=== PATIENT | male | born 1965 | race Hispanic/Latino ===

== ENCOUNTER 2017-09-09 13:47 | Emergency (ER) | payer SELFPAY ==
--- NOTE | 2017-09-09 15:50 | Emergency Department Report ---
Blank Doc - Documentation Documentation: 52 y.o c.m is here with back pain, mild 3/10, bright red blood in urine that started this morning. no fever, no flank pain, no prior history of such symptoms. no chest pain, sob.
[2017-09-09 16:03] LABS: Bilirubin,Urine NEG (Negative); Blood,Urine LG (Negative); Color,Urine Red (Yellow); Mucus,Urine 1+ /HPF
[2017-09-09 16:08] LABS: RBC,Urine > 182.0 /HPF (0.0-6.0)
[2017-09-09 16:09] LABS: Basophils # (Auto) 0.1 K/mm3 (0.0-0.1); Eosinophils % (Auto) 0.5 % (0.0-4.3); Hematocrit 39.6 % (35.5-45.6); Hemoglobin 13.4 gm/dl (11.8-15.2); Lymphocytes % (Auto) 12.9 % (13.4-35.0); Mean Corpuscular HGB Conc 34 % (32-34); Mean Corpuscular Hemoglobin 31 pg (28-32); Mean Corpuscular Volume 93 fl (84-94); Monocytes # (Auto) 0.7 K/mm3 (0.0-0.8); Monocytes % (Auto) 8.8 % (0.0-7.3); Platelet Count 243 K/mm3 (140-440); Red Blood Count 4.27 M/mm3 (3.65-5.03); Red Cell Distribution Width 13.7 % (13.2-15.2)
[2017-09-09 16:24] LABS: Alanine Aminotransferase 18 units/L (7-56); BUN/Creatinine Ratio 26; Blood Urea Nitrogen 21 mg/dL (9-20); Calcium 9.3 mg/dL (8.4-10.2); Hemolysis Index 8
--- NOTE | 2017-09-09 16:38 | Emergency Department Report ---
ED Male HPI - General Chief complaint: Urogenital-Male Stated complaint: BLOOD IN URINE Time Seen by Provider: 09/09/17 16:55 Source: patient, family Mode of arrival: Stretcher Limitations: No Limitations - History of Present Illness Initial comments: 52 y.o c.m is here with back pain, mild 3/10, bright red blood in urine that started this morning. no fever, no flank pain, no prior history of such symptoms. no chest pain, sob. Pain is located to the lower pack and 5 out of 10. Intermittent. Denies any history of kidney stones. Patient morbid obesity and multiple allergies. He has a history of COPD, history of tracheostomy, sleep apnea, right DVT and PE IVC filter, hernia repair. Patient is lungs are also since 2007 and he's been followed by his primary care doctor Nicholas. He said he has multiple episode of clots and he is to be on medication for life. Denies any active bleeding in anywhere that in his urine. Denies any swelling of legs. Denies any fever or chills. Denies any coughing. MD Complaint: other (blood in urine and back pain) Onset/Timin -: days(s) Radiation: none Severity: moderate Severity scale (0 -10): 5 Quality: aching Consistency: intermittent Improves with: none Worsens with: none blood in urine, other (pain is located to the lower back.). denies: discharge, swelling, mass, rash, urinary retention, dysuria, fever, nausea/vomiting, incontinence - Related Data Sexually active: Yes Previous Rx's Medication Instructions Recorded Last Taken Type Levofloxacin [Levaquin] 750 mg PO QDAY 10 Days #10 tablet 09/09/17 Unknown Rx Ondansetron [Zofran ODT TAB] 8 mg PO Q8HR PRN #12 tab.rapdis 09/09/17 Unknown Rx Allergies Allergy/AdvReac Type Severity Reaction Status Date / Time acetaminophen [From Vicodin] Allergy Unknown Verified 09/09/17 14:38 hydrocodone [From Vicodin] Allergy Unknown Verified 09/09/17 14:38 ibuprofen [From Motrin] Allergy Unknown Verified 09/09/17 14:38 meperidine [From Demerol] Allergy Unknown Verified 09/09/17 14:38 morphine Allergy Unknown Verified 09/09/17 14:38 oxycodone [From Percocet] Allergy Unknown Verified 09/09/17 14:38 promethazine [From Phenergan] Allergy Unknown Verified 09/09/17 14:38 propoxyphene Allergy Unknown Verified 09/09/17 14:38 [From Darvocet-N 100] ED Review of Systems ROS: Stated complaint: BLOOD IN URINE Other details as noted in HPI Comment: All other systems reviewed and negative Constitutional: no symptoms reported Respiratory: no symptoms reported Cardiovascular: denies: chest pain, palpitations, dyspnea on exertion, orthopnea , edema, syncope, paroxysmal nocturnal dyspnea Gastrointestinal: denies: abdominal pain, nausea, vomiting, diarrhea, constipation, hematemesis, melena, hematochezia Genitourinary: hematuria. denies: urgency, dysuria, frequency, discharge, testicular pain, testicular mass Musculoskeletal: back pain. denies: joint swelling, arthralgia, myalgia Skin: denies: rash Neurological: denies: headache Hematological/Lymphatic: other (patient is on blood thinner) ED Past Medical Hx - Past Medical History Hx Deep Vein Thrombosis: Yes (patient on Xarelto since 2007) Hx Pulmonary Embolism: Yes Hx COPD: Yes Additional medical history: morbid obesity,sleep apnea, right DVT,PE - Surgical History Past Surgical History?: Yes Additional Surgical History: trach,umbilical hernia repair,IVC filter - Family History Family history: hypertension - Social History Smoking Status: Never Smoker Substance Use Type: None - Medications Home Medications: Home Medications Medication Instructions Recorded Confirmed Last Taken Type Levofloxacin [Levaquin] 750 mg PO QDAY 10 Days #10 tablet 09/09/17 Unknown Rx Ondansetron [Zofran ODT TAB] 8 mg PO Q8HR PRN #12 tab.rapdis 09/09/17 Unknown Rx ED Physical Exam - General Limitations: No Limitations General appearance: alert, in no apparent distress, obese (morbid Obesity) - Head Head exam: Present: atraumatic, normocephalic, normal inspection - Eye Eye exam: Present: normal appearance, PERRL, EOMI. Absent: scleral icterus, conjunctival injection, periorbital swelling, periorbital tenderness Pupils: Present: normal accommodation - ENT ENT exam: Present: normal exam, mucous membranes moist, TM's normal bilaterally , normal external ear exam - Neck Neck exam: Present: normal inspection, full ROM, other (O C-spine tenderness). Absent: tenderness, meningismus, lymphadenopathy, thyromegaly - Respiratory Respiratory exam: Present: normal lung sounds bilaterally. Absent: respiratory distress, wheezes, rales, rhonchi, stridor, chest wall tenderness, accessory muscle use, decreased breath sounds, prolonged expiratory - Cardiovascular Cardiovascular Exam: Present: regular rate, normal rhythm, normal heart sounds - GI/Abdominal GI/Abdominal exam: Present: soft, normal bowel sounds. Absent: distended, tenderness, guarding, rebound, rigid, mass, bruit, pulsatile mass, hernia - Extremities Exam Extremities exam: Present: normal inspection, full ROM, normal capillary refill , other (no clubbing, cyanosis or edema. Positive pulses all extremities and no neurovascular compromise). Absent: tenderness, pedal edema, joint swelling, calf tenderness - Back Exam Back exam: Present: normal inspection, other (ambulates without any difficulties ). Absent: tenderness, CVA tenderness (R), CVA tenderness (L), muscle spasm, paraspinal tenderness, rash noted - Neurological Exam Neurological exam: Present: alert, oriented X3, normal gait - Psychiatric Psychiatric exam: Present: normal affect, normal mood - Skin Skin exam: Present: warm, dry, intact, normal color. Absent: rash ED Course Vital Signs 09/09/17 14:32 Temperature 97.9 F Pulse Rate 80 Respiratory 20 Rate Blood Pressure 163/75 O2 Sat by Pulse 94 Oximetry - Reevaluation(s) Reevaluation #1: 09/09/17 18:38 Patient reports blood in urine and he was given normal saline 1 L, Toradol 30 mg IV and Zofran 4 mg IV for back pain. He had one episode of blood in his urine. Reevaluation #2: 09/09/17 18:[address] She [address] have [address] scan of the abdomen and pelvis without contrast because of his morbid obesity. CT scan could not withstand his weight. ED Medical Decision Making - Lab Data Result diagrams: 09/09/17 15:55 09/09/17 15:55 Lab Results 09/09/17 09/09/17 09/09/17 Range/Units 15:17 15:55 15:55 WBC 7.9 (4.5-11.0) K/mm3 RBC 4.27 (3.65-5.03) M/mm3 Hgb 13.4 (11.8-15.2) gm/dl Hct 39.6 (35.5-45.6) % MCV 93 (84-94) fl MCH 31 (28-32) pg MCHC 34 (32-34) % RDW 13.7 (13.2-15.2) % Plt Count 243 (140-440) K/mm3 Lymph % (Auto) 12.9 L (13.4-35.0) % Dolores % (Auto) 8.8 H (0.0-7.3) % Eos % (Auto) 0.5 (0.0-4.3) % Baso % (Auto) 1.0 (0.0-1.8) % Lymph # 1.0 L (1.2-5.4) K/mm3 Dolores # 0.7 (0.0-0.8) K/mm3 Eos # 0.0 (0.0-0.4) K/mm3 Baso # 0.1 (0.0-0.1) K/mm3 Seg Neutrophils % 76.8 H (40.0-70.0) % Seg Neutrophils # 6.0 (1.8-7.7) K/mm3 Sodium 138 (137-145) mmol/L Potassium 4.3 (3.6-5.0) mmol/L Chloride 101.0 (98-107) mmol/L Carbon Dioxide 23 (22-30) mmol/L Anion Gap 18 mmol/L BUN 21 H (9-20) mg/dL Creatinine 0.8 (0.8-1.5) mg/dL Estimated GFR > 60 ml/min BUN/Creatinine Ratio 26 % Glucose 93 (75-100) mg/dL Calcium 9.3 (8.4-10.2) mg/dL Total Bilirubin 0.40 (0.1-1.2) mg/dL AST 17 (5-40) units/L ALT 18 (7-56) units/L Alkaline Phosphatase 72 (35-129) units/L Total Creatine Kinase (55-170) units/L Total Protein 7.2 (6.3-8.2) g/dL Albumin 4.0 (3.9-5) g/dL Albumin/Globulin Ratio 1.3 % Urine Color Red (Yellow) Urine Turbidity Clear (Clear) Urine pH 5.0 (5.0-7.0) Ur Specific Lincoln 1.025 (1.003-1.030) Urine Protein 100 mg/dl (Negative) mg/dL Urine Glucose (UA) Neg (Negative) mg/dL Urine Ketones Tr (Negative) mg/dL Urine Blood Lg (Negative) Urine Nitrite Neg (Negative) Urine Bilirubin Neg (Negative) Urine Urobilinogen 2.0 (<2.0) mg/dL Ur Leukocyte Esterase Tr (Negative) Urine WBC (Auto) 159.0 H (0.0-6.0) /HPF Urine RBC (Auto) > 182.0 (0.0-6.0) /HPF U Epithel Cells (Auto) 3.0 (0-13.0) /HPF Urine Mucus 1+ /HPF 09/09/17 Range/Units 15:55 WBC (4.5-11.0) K/mm3 RBC (3.65-5.03) M/mm3 Hgb (11.8-15.2) gm/dl Hct (35.5-45.6) % MCV (84-94) fl MCH (28-32) pg MCHC (32-34) % RDW (13.2-15.2) % Plt Count (140-440) K/mm3 Lymph % (Auto) (13.4-35.0) % Dolores % (Auto) (0.0-7.3) % Eos % (Auto) (0.0-4.3) % Baso % (Auto) (0.0-1.8) % Lymph # (1.2-5.4) K/mm3 Dolores # (0.0-0.8) K/mm3 Eos # (0.0-0.4) K/mm3 Baso # (0.0-0.1) K/mm3 Seg Neutrophils % (40.0-70.0) % Seg Neutrophils # (1.8-7.7) K/mm3 Sodium (137-145) mmol/L Potassium (3.6-5.0) mmol/L Chloride (98-107) mmol/L Carbon Dioxide (22-30) mmol/L Anion Gap mmol/L BUN (9-20) mg/dL Creatinine (0.8-1.5) mg/dL Estimated GFR ml/min BUN/Creatinine Ratio % Glucose (75-100) mg/dL Calcium (8.4-10.2) mg/dL Total Bilirubin (0.1-1.2) mg/dL AST (5-40) units/L ALT (7-56) units/L Alkaline Phosphatase (35-129) units/L Total Creatine Kinase 71 (55-170) units/L Total Protein (6.3-8.2) g/dL Albumin (3.9-5) g/dL Albumin/Globulin Ratio % Urine Color (Yellow) Urine Turbidity (Clear) Urine pH (5.0-7.0) Ur Specific Lincoln (1.003-1.030) Urine Protein (Negative) mg/dL Urine Glucose (UA) (Negative) mg/dL Urine Ketones (Negative) mg/dL Urine Blood (Negative) Urine Nitrite (Negative) Urine Bilirubin (Negative) Urine Urobilinogen (<2.0) mg/dL Ur Leukocyte Esterase (Negative) Urine WBC (Auto) (0.0-6.0) /HPF Urine RBC (Auto) (0.0-6.0) /HPF U Epithel Cells (Auto) (0-13.0) /HPF Urine Mucus /HPF Urine culture sent and pending - EKG Data -: EKG Interpreted by Me (attending physician in ER.) EKG shows normal: sinus rhythm (65 bpm) Rate: normal - EKG Data Interpretation: no acute changes - Radiology Data Radiology results: pending Pt unable to get CT scan of the abdomen and pelvis due to his massive body habitus - Medical Decision Making ED course: This is a 52-year-old male here complaining of back pain to his lower back and blood in his urine. Patient health problems been managed by his primary care physician was Dr. Peterson. Patient takes around toe for multiple episode of DVT and for history of pulmonary embolism. He has been taking this since 2007 without any problems. Patient has no active bleeding at present but his urinalysis showed that he had large amount of blood in his urine, trace ketone, leukocyte esterase, white blood cell, red blood cell and bacteria. Patient denies any history of kidney stone. Patient was unable to have CT scan of the abdomen and pelvis due to large body habitus. His CBC stable without any abdomen bowel disease and is hemoglobin and hematocrit. Chemistry is stable to include CK. patient was seen by Dr. Singer and evaluated. he was told that he will have to follow-up with [facility] to be evaluated for genitourinary abnormality and his primary care physician in 1 to 2 days. I discussed with him that if he cannot get in with any of these doctors that he will need to return to the emergency room to have his H&H rechecked to make sure that he is not actively bleeding. His H&H is within normal limits at present. Dr. Singer involved in patient care. Patient given IV fluids 1 L in the emergency room, Toradol 30 mg IV and Zofran 4 mg IV. Patient said he was allergic to ibuprofen but he is taking Toradol in the past without any difficulties. Patient voiced understanding of discharge diagnosis and treatment plan and need to follow up as discussed. Discharged home with prescription for Levaquin and zofran. Critical care attestation.: If time is entered above; I have spent that time in minutes in the direct care of this critically ill patient, excluding procedure time. ED Disposition Clinical Impression: Acute cystitis with hematuria, Morbid obesity with body mass index of 50.0- 59.9 in adult Lower back injury Qualifiers: Encounter type: initial encounter Qualified Code(s): S39.92XA - Unspecified injury of lower back, initial encounter Disposition: - TO HOME OR SELFCARE Is pt being admited?: No Does the pt Need Aspirin: No Condition: Stable Instructions: Urinary Tract Infection in Men (ED), Acute Hematuria (ED), Back Pain (ED), Obesity (ED), Weight Management (ED) Additional Instructions: These follow-up with your primary care physician Dr. Peterson in 1-2 days Follow-up with [facility] in 1-2 days. If you cannot get in with primary care in [facility] in the morning to schedule an appointment and if he cannot get in with any of these physician please transfer the hospital in 2 days to have blood level checked to make sure that you are not actively bleeding since here on blood thinner and on Xarelto If you rebleed and increase, please return to the emergency room. If he does not nausea and vomiting, increasing back pain or lower abdominal pain please return to emergency room. Take Levaquin for urinary tract infection and Zofran if he developed nausea. These increased your fluid intake. Prescriptions: Levofloxacin [Levaquin] 750 mg PO QDAY 10 Days #10 tablet Ondansetron [Zofran ODT TAB] 8 mg PO Q8HR PRN #12 tab.rapdis PRN Reason: Nausea And Vomiting Referrals: PRIMARY CARE, [Primary Care Provider] - 09/10/17 [facility] [Provider Group] - 09/10/17 Forms: Work/School Release Form(ED), Accompanied Note
[2017-09-09] MEDS ORDERED: NACL 0.9% 1000 ML 1,000 ML IV ONE (16:40)
[2017-09-09] MEDS ORDERED: cefTRIAXone 1 GM in NACL 0.9% 20 ML IV ONE (17:00)
[2017-09-09] MEDS ORDERED: TORADOL IV ONE (17:26)
[2017-09-09] MEDS ORDERED: ZOFRAN IV ONE (17:26)
[2017-09-10 01:55] VITALS: BP 154/86
== END 2017-09-09 19:10 | disposition home or self-care (01) ==
LOC: ED 13:47
DX: S39.92XA Unspecified injury of lower back, initial encounter (principal); N30.01 Acute cystitis with hematuria; E66.01 Morbid (severe) obesity due to excess calories; J44.9 Chronic obstructive pulmonary disease, unspecified; Z68.43 Body mass index [BMI] 50.0-59.9, adult; Z86.718 Personal history of other venous thrombosis and embolism; Z86.711 Personal history of pulmonary embolism; Z88.6 Allergy status to analgesic agent; X58.XXXA Exposure to other specified factors, initial encounter; Y93.89 Activity, other specified; Y92.89 Other specified places as the place of occurrence of the external cause; Y99.8 Other external cause status
CPT/HCPCS: 36415; 80053; 81001; 82550; 85025; 93005; 93010; 96365; 96375; 99283; J0696; J1885; J2405; J7030